=== PATIENT | male | born 2000 | race Caucasian/White ===

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

== ENCOUNTER → 2018-01-23 14:48 | Outpatient (CLI) | payer OTHER, SELFPAY ==
--- NOTE | 2018-01-23 14:49 | ECHOD_ITS ---
Reason For Study: Murmur Procedure This was a 2D Doppler, Color Flow transthoracic echocardiogram. The exam was of fair technical quality due to body habitus. Exam performed in department. Left Ventricle Normal LV size. Left ventricular systolic function is normal. The estimated ejection fraction is 70 %. No evidence for diastolic dysfunction. No regional wall motion abnormalities noted. Right Ventricle Normal RV size. Normal systolic function. Atria Normal left atrium. Normal right atrium. No doppler evidence for ASD. Mitral Valve There is no mitral annular calcification. Normal mitral valve. Trivial mitral valve insufficiency. Tricuspid Valve Normal tricuspid valve. Trivial tricuspid valve insufficiency. Right ventricular systolic pressure estimated to be 26 mmHg. Aortic Valve Based upon the 2D echocardiographic images obtained the aortic valve leaflets are not well visualized and a bicuspid aortic valve cannot be excluded. Consider further evaluation with MELINDA if clinically indicated. Trivial aortic valve insufficiency. Pulmonic Valve The pulmonic valve is not well visualized. Great Vessels Normal sized aortic root. Pericardium/Pleural No pericardial effusion. MMode/2D Measurements & Calculations LVIDd: 5.1 cm IVSd: 1.1 cm Ao root diam: 2.1 cm LVIDs: 3.4 cm LVPWd: 1.1 cm LA dimension: 3.3 cm RVDd: 4.0 cm FS: 34.1 % LAV(MOD-bp): 31.4 ml LA A4 area: 12.0 cm2 RA A4 area: 14.0 cm2 LAV(MOD-bp) Indexed: 14.2 ml/m2 LAV(MOD-sp2): 38.8 ml LAV(MOD-sp4): 23.1 ml Doppler Measurements & Calculations MV E max jeff: 111.4 cm/sec Lat Peak E' Jeff: 13.9 cm/sec Med Peak E' Jeff: 9.5 cm/sec MV A max jeff: 57.8 cm/sec E/E' lat: 8.0 E/E' med: 11.7 MV E/A: 1.9 Ao V2 max: 166.3 cm/sec LV V1 max: 137.8 cm/sec PA V2 max: 151.8 cm/sec Ao max P.1 mmHg LV V1 max P.6 mmHg Ao V2 mean: 113.8 cm/sec Ao mean P.9 mmHg Ao V2 VTI: 32.8 cm TR max jeff: 238.9 cm/sec TR max P.9 mmHg Interpretation Summary Left ventricular systolic function is normal. The estimated ejection fraction is 70 %. Trivial mitral valve insufficiency. Trivial tricuspid valve insufficiency. Based upon the 2D echocardiographic images obtained the aortic valve leaflets are not well visualized and a bicuspid aortic valve cannot be excluded. Consider further evaluation with MELINDA if clinically indicated. Trivial aortic valve insufficiency. Right ventricular systolic pressure estimated to be 26 mmHg. No evidence for diastolic dysfunction. Ordering Physician: Artur Sam Referring Physician: Artur Sam Performed By: Adriana Reyna, JOECS, RVT
== END ==
LOC: CVS 14:48
PROVIDERS: Family Provider Physician Assistant; PCP Physician Assistant; Visit Provider Family Medicine
DX: R00.1 Bradycardia, unspecified (principal)
CPT/HCPCS: 93306

== ENCOUNTER → 2018-05-12 13:13 | Outpatient (CLI) | payer OTHER, SELFPAY ==
--- NOTE | 2018-05-12 13:45 | MRI_ITS ---
STUDY: MRI BRAIN WITH AND WITHOUT CONTRAST REASON FOR EXAM: Male, 18 years old. Seizures x2 years. TECHNIQUE: Standardized multiplanar fat and water weighted pulse sequences were obtained. 10 ml of Gadavist contrast material was administered intravenously for the contrast portion of the examination. COMPARISON: None. FINDINGS: There is no intracranial mass or enhancing lesion. There is no hemorrhage, infarct, or acute ischemia. Temporal lobes are bilaterally symmetric. No evidence of hippocampal atrophy or signal abnormality to indicate mesial temporal sclerosis. Normal size of the ventricles and extra-axial spaces for the patient's age. Normal white matter tracts of the supratentorial brain. Normal bilateral basal ganglia. Normal thalami. There is no extra-axial fluid accumulation. Normal flow voids within the major intracranial circulation suggesting patency by spin echo criteria. There is no enhancing intra-axial or extra-axial abnormality. Normal sella turcica, pituitary gland, infundibular stalk, optic chiasm and hypothalamus. Normal tectal plate and pineal gland. Normal midbrain, ramirez and medulla. Normal cerebellum. Normal basal cisterns. Normal bilateral temporal bones. Normal bilateral internal auditory canals. No demonstrated orbital abnormality, within the constraints of a routine brain study. Normal visualized paranasal sinuses. Normal calvarium and skull base. Normal visualized soft tissue structures. Normal visualized upper cervical spine. MRI/Brain W/WO Contrast IMPRESSION: Normal unenhanced and enhanced MRI of the brain. Electronically Signed: Magalys Apple MD at 16:31 EDT Tel , Service support ,
== END ==
LOC: MRI 13:13
PROVIDERS: Family Provider Family Medicine; PCP Family Medicine; Visit Provider Psychiatry & Neurology Neurology
DX: R56.9 Unspecified convulsions (principal)
CPT/HCPCS: 70553; A9585

== ENCOUNTER → 2023-05-29 | Outpatient (CLI) | payer OTHER, SELFPAY ==
[2023-05-29 15:08] LABS: Hematocrit 44.5 % (40-54); Hemoglobin 14.4 g/dL (13.0-16.5); Mean Corp Hgb Conc 32.4 g/dL (32-36); Mean Corpuscular Hgb 30.1 pg (27.0-32.0); Mean Corpuscular Volume 93.1 fL (80-94); Mean Platelet Vol. 11.4 fl (6.2-12.0); Platelet Count 213 K/mm3 (150-450); RBC Distribution Width CV 13.2 % (11.6-14.6); RBC Distribution Width SD 45.3 fl (35.1-43.9); Red Blood Count 4.78 M/mm3 (4.6-6.2); White Blood Count 4.2 K/mm3 (4.4-11.0)
[2023-05-29 15:48] LABS: Ammonia < 10.0 umol/L (11-32)
[2023-05-29 16:04] LABS: Vitamin B12 578 pg/mL (211-911)
[2023-05-29 16:08] LABS: ALB/GLOB Ratio 1.1 RATIO (0.9-2.4); AST(SGOT) 15 U/L (15-37); Alanine Aminotransfer ALT/SGPT 18 U/L (16-61); Alkaline Phosphatase 45 U/L (45-117); Anion Gap 4 (5-15); BUN 14 mg/dL (7-18); BUN/Creat Ratio 15.9 RATIO (10-20); Chloride 109 mmol/L (98-107); Creatinine, Serum 0.88 mg/dL (0.70-1.30); EST Glomerular Filtration Rate 112 mL/min (>60); Est Glom Filt Rate - Afr Amer 135 mL/min (>60); Globulin 3.5 g/dL (2.2-4.2); Glucose 93 mg/dL (74-106); Magnesium 2.3 mg/dL (1.6-2.6); Potassium 3.9 mmol/L (3.5-5.1); Protein, Total 7.5 g/dL (6.4-8.2); Sodium Level 139 mmol/L (136-145)
[2023-06-10 01:06] LABS: Lamotrigine (Lamictal) Level 3.5 ug/mL (2.0-20.0); Vitamin B1, Thiamine 126.7 nmol/L (66.5-200.0)
== END | disposition home or self-care (01) ==
LOC: MTLAB 12:40
PROVIDERS: PCP Family Medicine; Visit Provider Psychiatry & Neurology Neurology
DX: G40.909 Epilepsy, unspecified, not intractable, without status epilepticus (principal); R41.3 Other amnesia
CPT/HCPCS: 36415; 80053; 82140; 82542; 82607; 82746; 83735; 84425; 84443; 85027